=== PATIENT | female | born 1950 | race Caucasian/White ===

== ENCOUNTER 2016-12-10 14:44 | Emergency (ER) | payer MEDICARE, OTHER ==
[2016-12-10] MEDS ORDERED: VENLAFAXINE HCL75 M4 PO (14:58)
[2016-12-10] MEDS ORDERED: CALCIUM CITRAT1 EAC6 PO (14:59)
[2016-12-10] MEDS ORDERED: IMITREX50 M2 PO (14:59)
[2016-12-10] MEDS ORDERED: MULTIVITAMINS1 EAC6 PO (14:59)
[2016-12-10] MEDS ORDERED: ASPIRIN EC81 MG PO (15:00)
[2016-12-10] MEDS ORDERED: VITAMIN C1000 M1 PO (15:00)
[2016-12-10] MEDS ORDERED: ALLEGRA-D 24 H1 EACH PO (15:00)
[2016-12-10] MEDS ORDERED: SIMPLY SLEEP PO (15:00)
[2016-12-10] MEDS ORDERED: EYE DROP TEARS15 M1 OP (15:01)
[2016-12-10 15:28] LABS: URINE BILIRUBIN NEGATIVE (NEG); URINE BLOOD SMALL (NEG); URINE GLUCOSE (UA) NEGATIVE (NEG); URINE KETONE MODERATE (NEG); URINE LEUKOCYTE ESTERASE NEGATIVE (NEG); URINE NITRITE NEGATIVE (NEG); URINE PROTEIN SMALL (NEG)
[2016-12-10 15:29] LABS: URINE APPEARANCE CLEAR; URINE COLOR DARK YELLOW
[2016-12-10 15:32] LABS: BASO % 0.1 % (0-2); EOS % 0.8 % (0-7); EOSINOPHIL ABSOLUTE COUNT 0.1 tho/cmm (0.0-0.7); HCT-HEMATOCRIT 40.3 % (34.0-49.0); HGB-HEMOGLOBIN 13.9 gm/dl (12.0-15.5); LYMPH ABSOLUTE COUNT 1.2 tho/cmm (0.8-4.5); MCH (MEAN CORPUSCULAR HGB) 30.1 pg (28.0-32.0); MCHC MEAN CORPUSCULAR HGB CONC 34.5 % (32.0-36.0); MCV (MEAN CELL VOLUME) 87.2 fl (82.0-96.0); MEAN PLATELET VOLUME 9.9 cmc (9.4-12.4); MONO % 5.3 % (0-12); MONOCYTE ABSOLUTE COUNT 0.5 tho/cmm (0.0-1.2); NEUTROPHIL ABSOLUTE COUNT 8.1 tho/cmm (1.6-8.0); NEUTROPHIL-AUTOMATED 8.1 tho/cmm (1.6-8.0); NEUTROPHILS % 81.8 % (40-80); PLATELET COUNT 322 tho/cmm (150-450); RED BLOOD COUNT 4.62 mil/cmm (4.00-5.20); RED CELL DISTRIBUTION WIDTH 12.8 % (12.4-16.4); WHITE BLOOD COUNT 9.9 tho/cmm (4.0-10.0)
[2016-12-10 15:34] LABS: ALB/GLOB RATIO 0.9 (0.8-2.0); ALBUMIN 3.9 g/dl (3.5-5.0); ALKALINE PHOSPHATASE 82 U/L (33-138); ALT/SGPT 31 U/L (12-78); ANION GAP 14 mmol/L (0-20); AST/SGOT 27 U/L (10-40); BILIRUBIN,TOTAL 0.9 mg/dl (0-1.5); BLOOD UREA NITROGEN 17 mg/dl (6-24); CALCIUM 9.2 mg/dl (8.5-10.5); CARBON DIOXIDE-VENOUS 24 mmol/L (22-32); CHLORIDE 98 mmol/l (96-110); CREATININE 0.88 mg/dl (0.50-1.10); GLUCOSE 102 mg/dL (70-110); LIPASE 109 U/L (73-393); POTASSIUM 4.2 mmol/L (3.7-5.1); SODIUM 132 mmol/L (135-145); eGFR VALUE FOR BLACK 79 mL/Min
[2016-12-10 15:35] LABS: URINE EPITHELIAL CELLS 0 /[HPF] (0-10); URINE MUCUS 2+; URINE RBC 0 /[HPF] (0-5); URINE WBC 0-1 /[HPF] (0-5)
[2016-12-10] MEDS ORDERED: OMEPRAZOLE40 M2 PO (16:31)
== END 2016-12-10 16:44 ==
LOC: EDMED 14:44
PROVIDERS: Emergency Medicine
DX: K21.9 Gastro-esophageal reflux disease without esophagitis (principal)
CPT/HCPCS: J1170; J2405; J7030; Q9967